=== PATIENT | female | born 1970 | race Caucasian/White ===

== ENCOUNTER → 2025-03-14 14:35 | Outpatient (REF) | payer BC, SELFPAY | LOC: MRI 14:35 | PROVIDERS: ATTENDING PHYSICIAN Internal Medicine Rheumatology; FAMILY PHYSICIAN Family Medicine | DX: M13.0 Polyarthritis, unspecified (principal) | CPT/HCPCS: 73721 ==

== ENCOUNTER 2025-07-27 13:26 | Emergency (ER) | payer BC, SELFPAY ==
[2025-07-27 13:28] VITALS: BP 146/87
[2025-07-27] MEDS: TYLENOL 1000 MG PO (14:29)
--- NOTE | 2025-07-27 14:30 | ED.GENMED ---
History of Present Illness
General
Chief Complaint: Headache
Source: patient
Exam Limitations: none
Time Seen by Provider: 07/27/25 14:08
Nursing documentation reviewed up to this point in time: agreed with
History of Present Illness
History of Present Illness:
The patient is a pleasant 55-year-old female the past medical history of cerebral aneurysm with coiling who reports sudden onset of severe headache while cleaning her house today. Patient reports it has dulled out. Patient reports it initially
felt like it started along the left side of the base of her head and felt like it was radiating up to the top of her head. She denies vision changes. She feels slightly nauseous but denies vomiting. She denies recent illness, rash and fever. She
reports she is a history of ocular migraines.
Past History
Past History
ED Past Medical History: Other (Cerebral aneurysm, ocular migraines)
ED Past Surgical History: , Gynecological and Other (Coiling of cerebral aneurysm)
Social History
Tobacco: Non-smoker
Alcohol: Occasional
Drug: None
Personal:
Living: with family
Employment: Employed
Family History
Family History: Other
Review of Systems
Review of Systems
Allergies reviewed?: Yes
All Other Systems: ROS reviewed and negative except as documented in HPI and ROS
Constitutional: Reports no symptoms
EENT: Reports no symptoms
Respiratory: Reports no symptoms
Cardiac: Reports no symptoms
ABD/GI: Reports nausea
: Reports no symptoms
Musculoskeletal: Reports no symptoms
Skin: Reports no symptoms
Neurological: Reports no symptoms
Endocrine: Reports no symptoms
Hematologic/Lymphatic: Reports no symptoms
Psychiatric: Reports no symptoms
Phy Exam
Physical Exam
Physical Exam:
Physical Exam
General: no apparent distress, not acutely ill
Neck: supple. no meningeal signs. normal psoterior pharynx
Heart: s1/s2 regular rate and rhythm, no murmur. equal radial pulses.
Lungs: no acute respiratory distress. clear bilaterally
Abdomen: normal bowel sounds. not tender. no CVAT
Neuro: alert and orientedx3. no focal neurological deficits, no photophobia. Extraocular muscles intact. PERRL, equal sensation and strength bilaterally
Skin: no rash
Psychiatric: well kept. interactive and cooperative
Extremities: no edema. no calf tenderness. negative homans. good distal pulses
Course
Orders/Labs/Results
Orders:
Orders
07/27/25 14:18
Acetaminophen [Tylenol] 1,000 mg PO NOW STA
07/27/25 14:26
CT Head & Neck Angio W/wo IV Urgent
Comment:
Reason For Exam: sudden headache, hisory of aneursym
07/27/25 15:19
Complete Blood Count/With Diff Urgent
Comprehensive Metabolic Panel Urgent
07/27/25 17:05
0.9% Sodium Chloride 1000 ml [Nss] 1,000 ml IV BOLUS
Abnormal Lab Results
07/27/25
15:19
RBC 4.14 L 10^6/uL
(4.20-5.40)
MCH 32.4 H pg
(27.0-31.0)
Neutrophils % 40.7 L %
(42.2-75.2)
Creatinine 1.6 H mg/dL
(0.6-1.0)
Total Bilirubin 1.8 H mg/dl
(0.2-1.3)
07/27/25 15:19
07/27/25 15:19
Vital Signs
Initial and Last Documented VS:
Initial Vital Signs
Temp Pulse Resp BP Pulse Ox
98.8 F 80 16 146/87 96
07/27/25 13:28 07/27/25 13:28 07/27/25 13:28 07/27/25 13:28 07/27/25 13:28
Last Documented Vital Signs
Temp Pulse Resp BP Pulse Ox
98.8 F 66 16 111/67 99
07/27/25 13:28 07/27/25 16:35 07/27/25 16:35 07/27/25 16:35 07/27/25 16:35
MDM/Problems Addressed
Differential Diagnosis Includes:
Migraine headache, ruptured cerebral aneurysm, new cerebral aneurysm
MDM/Problems Addressed:
Patient presents with acute headache
Chronic conditions affecting care:
History of cerebral aneurysms
Acute Exacerbation and/or Progression of Chronic Illness:
Patient may have acute rupture or aneurysms
*Radiology
Radiology exam reviewed: radiology read reviewed
*Pulse Oximetry
SaO2: 96
Oxygen Mode of Delivery: Room air
Patient hypoxic: no
*EKG
Interpreted by ED Provider?: NA
*Aluminum Can Collector Interpretation
Rate: normal
Interpretation: normal
Rhythm: sinus
*Critical Care Note
Total Time (30-74mins, 75-104mins- exclusive of procedures): Not Applicable
Data Reviewed
Review of Other/Old Records Reveals: Testing (Colonoscopy in 2022 showed diverticulosis)
Source: patient
Patient Management
Social determinants of health affecting care: Living situation and Strong social support
Escalation/DeEscalation of care consider admission/obs:
Patient remains extremely well and comfortable appearing. CTA shows no acute abnormalities. Patient reports her headache is much better with the Tylenol. Patient informed that her creatinine and bilirubin are elevated. Patient assured me that
she will follow-up with her primary care doctor for this. Patient is drinking water at the bedside, therefore, we decided to hold off on IV fluids. Patient sent home with a copy of her blood work to show her primary care doctor
ED Attending Note
-
Portions of this chart may have been created with voice recognition software.� Occasional wrong word or��sound alike� substitutions may have occurred due to the inherent limitations of voice recognition software.
Discharge Plan
Departure
Patient Disposition: Home (Routine Discharge)
Date of Disposition: 07/27/25
Time of Disposition: 17:33
Patient with high blood pressure during this ER visit?: No
Condition: Good
Covid-19: Not Applicable
Discharge Problem:
Acute headache
Instructions: Headaches in adults
Prescriptions:
No Action
aspirin 325 mg Capsule
325 mg PO DAILY
Referrals:
Kori Kumar DO [Family Provider, Family Practice]
Activity Restrictions/Additional Instructions:
Return with any worsening or severe headache. Please follow-up with your primary care doctor within 7 to 10 days to review your blood work. It is important that your doctor recheck your kidney function (creatinine) within 2 weeks to make sure it
normalizes. Keep drinking lots of fluids.
Interventions
Interventions:
*Risk Screen - Suicide Last Done: 07/27/25 13:28
*General Assessment Last Done: 07/27/25 13:28
*Neglect/Abuse Screening Last Done: 07/27/25 13:28
*ED COVID-19 Vaccine History Last Done: 07/27/25 13:28
Discharge Date and Time
Print Language: SRI LANKAN
[2025-07-27 15:26] LABS: Hematocrit 39.4 % (37.0-47.0); Hemoglobin 13.4 g/dL (12.0-16.0); Mean Corp Hgb Conc. 34.0 g/dL (33.0-37.0); Mean Corpuscular Volume 95.2 fL (81.0-99.0); Nucleated Red Blood Cells % 0 %; Platelet Count 210 10^3/uL (130-400); Red Cell Dist. Width 12.2 % (11.5-14.5)
[2025-07-27 15:50] LABS: ALT (SGPT) 18 U/L (0-35); AST (SGOT) 24 U/L (14-36); Albumin 4.6 g/dl (3.5-5.0); Alkaline Phosphatase 38 U/L (38-126); Blood Urea Nitrogen 16 mg/dl (7-17); Calcium 9.1 mg/dl (8.4-10.2); Carbon Dioxide 26 mmol/L (22-30); Chloride 106 mmol/L (98-107); Glucose 85 mg/dl (70-99); Potassium 3.9 mmol/L (3.5-5.1); Sodium 137 mmol/L (135-145); Total Protein 7.2 g/dl (6.3-8.2)
[2025-07-27 16:22] LABS: eGFR 38.09
[2025-07-27 16:35] VITALS: BP 111/67
[2025-07-27 17:50] VITALS: BP 112/74
== END 2025-07-27 17:50 | disposition home or self-care (01) ==
LOC: EMR 13:26
PROVIDERS: EMERGENCY PHYSICIAN Emergency Medicine; FAMILY PHYSICIAN Family Medicine
DX: R51.9 Headache, unspecified (principal); Z86.79 Personal history of other diseases of the circulatory system
CPT/HCPCS: 99284; 70496; 70498; 80053; 85025; Q9967